=== PATIENT | male | born 1975 | race Caucasian/White ===

== ENCOUNTER 2017-04-30 07:03 | Emergency (ER) | payer BC ==
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
[~2017-04-30 07:03] MED LIST: ADVAIR 500-501 EACH IH; ALBUTEROL0.83 MG/ML IH; ALBUTEROL17 G1; ALBUTEROL17 G1 INH; ALBUTEROL17 GM INH; AMOXIL500 MG PO; BECONASE AQ25 GM; CORTISPORIN-TC10 ML OT; FLEXERIL PO; NAPROSYN500 MG PO; PREDNISONE PO; PROVENTIL17 GM IH; SINGULAIR PO; VERAMYST10 GM; ZITHROMAX PO
[2017-04-30] MEDS ORDERED: LOPRESSOR PO (07:05)
[2017-04-30] MEDS ORDERED: ALBUTEROL17 GM INH (07:05)
[2017-04-30] MEDS ORDERED: ADVAIR 250-501 EAC1 INH (07:05)
== END 2017-04-30 07:33 | disposition home or self-care (01) ==
LOC: SED 07:03
DX: S63.522A Sprain of radiocarpal joint of left wrist, initial encounter (principal); J45.909 Unspecified asthma, uncomplicated; Z79.899 Other long term (current) drug therapy; I10 Essential (primary) hypertension; W23.0XXA Caught, crushed, jammed, or pinched between moving objects, initial encounter; Y92.009 Unspecified place in unspecified non-institutional (private) residence as the place of occurrence of the external cause
CPT/HCPCS: 29125; 73110; 99283